=== PATIENT | female | born 1950 | race Caucasian/White ===

== ENCOUNTER 2018-06-17 22:49 | Emergency (ER) | payer MEDICARE ==
[~2018-06-17] VITALS: Ht 162.6 cm; Wt 98.6 kg
[2018-06-17 22:56] VITALS: Ht 162.6 cm; Wt 98.6 kg
[2018-06-17] MEDS ORDERED: GLIPIZIDE10 MG (23:02)
[2018-06-17] MEDS ORDERED: NORVASC10 MG (23:02)
[2018-06-17] MEDS ORDERED: KLOR-CON M2020 MEQ (23:02)
[2018-06-17] MEDS ORDERED: ZOCOR10 MG (23:02)
[2018-06-17] MEDS ORDERED: FUROSEMIDE20 MG (23:02)
[2018-06-17] MEDS ORDERED: LOPRESSOR25 MG (23:02)
[2018-06-18] MEDS ORDERED: CIPRO500 MG PO (00:36)
[2018-06-18] MEDS ORDERED: PHENERGAN DM SYR5 ML PO (00:36)
[2018-06-18 01:24] VITALS: BP 148/84
== END 2018-06-18 01:26 | disposition home or self-care (01) ==
LOC: D.ER 22:49
DX: J06.9 Acute upper respiratory infection, unspecified (principal); J40 Bronchitis, not specified as acute or chronic; R05 Cough; M79.18 Myalgia, other site; E11.9 Type 2 diabetes mellitus without complications; I11.0 Hypertensive heart disease with heart failure; I50.9 Heart failure, unspecified